=== PATIENT | male | born 1970 | race African-American/Black ===

== ENCOUNTER 2018-10-25 09:43 | Emergency (ER) | payer SELFPAY ==
[~2018-10-25] VITALS: Ht 185.4 cm; Wt 83.9 kg
[~2018-10-25 09:43] MED LIST: BACTRIM DS 8001 TA1 PO; DAYPRO600 M1 PO; KEFLEX500 MG PO; MEDROL DOSEPAK4 MG PO; NKHM; ROBAXIN750 MG PO; VICODIN 5/500 505 MG PO
[2018-10-25] MEDS ORDERED: NAPROSYN500 MG PO (10:29)
[2018-10-25] MEDS ORDERED: CEPHALEXIN500 M1 PO (10:29)
== END 2018-10-25 10:41 | disposition home or self-care (01) ==
LOC: ED 09:43
DX: S50.862A Insect bite (nonvenomous) of left forearm, initial encounter (principal); L03.114 Cellulitis of left upper limb; W57.XXXA Bitten or stung by nonvenomous insect and other nonvenomous arthropods, initial encounter; Y93.89 Activity, other specified; Y92.89 Other specified places as the place of occurrence of the external cause; Y99.8 Other external cause status

== ENCOUNTER 2019-12-28 08:06 | Emergency (ER) | payer OTHER, BC ==
[~2019-12-28] VITALS: Wt 87.5 kg
[~2019-12-28 08:06] MED LIST changes: +CEPHALEXIN500 M1 PO; +NAPROSYN500 MG PO
[2019-12-28] MEDS ORDERED: NAPROSYN500 MG PO (09:32)
[2019-12-28] MEDS ORDERED: METHOCARBAMOL500 M1 PO (09:32)
[2019-12-28] MEDS ORDERED: MEDROL DOSEPAK4 MG PO (09:32)
== END 2019-12-28 10:10 | disposition home or self-care (01) ==
LOC: ED 08:06
DX: M54.42 Lumbago with sciatica, left side (principal); Z79.899 Other long term (current) drug therapy

== ENCOUNTER 2019-12-31 09:38 | Emergency (ER) | payer OTHER, BC ==
[~2019-12-31] VITALS: Ht 185.4 cm; Wt 87.5 kg
[~2019-12-31 09:38] MED LIST changes: +METHOCARBAMOL500 M1 PO
[2019-12-31] MEDS ORDERED: NORCO 5-325 TA1 EACH PO (11:51)
== END 2019-12-31 12:00 | disposition home or self-care (01) ==
LOC: ED 09:38
DX: S39.012A Strain of muscle, fascia and tendon of lower back, initial encounter (principal); X50.1XXA Overexertion from prolonged static or awkward postures, initial encounter; Y93.89 Activity, other specified; Y92.89 Other specified places as the place of occurrence of the external cause; Y99.8 Other external cause status

== ENCOUNTER → 2020-01-10 | Outpatient (CLI) | payer OTHER ==
[~2020-01-10] MED LIST changes: +NORCO 5-325 TA1 EACH PO
== END | disposition home or self-care (01) ==
LOC: RAD 10:56
PROVIDERS: ATTEND Chiropractor Orthopedic
DX: S33.5XXA Sprain of ligaments of lumbar spine, initial encounter (principal); X58.XXXA Exposure to other specified factors, initial encounter; Y93.89 Activity, other specified; Y92.89 Other specified places as the place of occurrence of the external cause; Y99.8 Other external cause status

== ENCOUNTER → 2020-07-17 | Outpatient (CLI) | payer OTHER | END | disposition home or self-care (01) | LOC: RAD 11:22 | PROVIDERS: ATTEND Chiropractor Orthopedic | DX: M16.0 Bilateral primary osteoarthritis of hip (principal); M51.36 Other intervertebral disc degeneration, lumbar region; M25.751 Osteophyte, right hip; M25.752 Osteophyte, left hip; M25.852 Other specified joint disorders, left hip; M25.851 Other specified joint disorders, right hip; M48.061 Spinal stenosis, lumbar region without neurogenic claudication ==

== ENCOUNTER → 2021-04-08 | Outpatient (CLI) | payer OTHER | END | disposition home or self-care (01) | LOC: RAD 10:36 | PROVIDERS: ATTEND Anesthesiology Pain Medicine | DX: M99.04 Segmental and somatic dysfunction of sacral region (principal); M47.816 Spondylosis without myelopathy or radiculopathy, lumbar region; M51.27 Other intervertebral disc displacement, lumbosacral region ==

== ENCOUNTER 2021-10-27 15:39 | Emergency (ER) | payer OTHER ==
[~2021-10-27] VITALS: Ht 185.4 cm; Wt 86.2 kg
[2021-10-27] MEDS ORDERED: METHOCARBAMOL500 M1 PO (18:54)
[2021-10-27] MEDS ORDERED: PREDNISONE20 M1 PO (18:54)
== END 2021-10-27 19:07 | disposition home or self-care (01) ==
LOC: ED 15:39
DX: S39.012A Strain of muscle, fascia and tendon of lower back, initial encounter (principal); V49.88XA Car occupant (driver) (passenger) injured in other specified transport accidents, initial encounter; Y93.89 Activity, other specified; Y92.413 State road as the place of occurrence of the external cause; Y99.9 Unspecified external cause status

== ENCOUNTER → 2022-02-24 | Outpatient (CLI) | payer OTHER ==
[~2022-02-24] MED LIST changes: +PREDNISONE20 M1 PO
== END | disposition home or self-care (01) ==
LOC: MRI 00:56
PROVIDERS: ATTEND Chiropractor
DX: M51.36 Other intervertebral disc degeneration, lumbar region (principal); M51.27 Other intervertebral disc displacement, lumbosacral region; M48.07 Spinal stenosis, lumbosacral region; M48.061 Spinal stenosis, lumbar region without neurogenic claudication

== ENCOUNTER 2023-03-02 21:43 | Emergency (ER) | payer OTHER ==
[~2023-03-02] VITALS: Ht 185.4 cm; Wt 86.2 kg
[2023-03-03] MEDS ORDERED: METHOCARBAMOL500 M1 PO (00:33)
[2023-03-03] MEDS ORDERED: NAPROXEN250 MG PO (00:33)
== END 2023-03-03 00:55 | disposition home or self-care (01) ==
LOC: ED 21:43
DX: S39.012A Strain of muscle, fascia and tendon of lower back, initial encounter (principal); M54.42 Lumbago with sciatica, left side; M79.605 Pain in left leg; X58.XXXA Exposure to other specified factors, initial encounter; Y93.89 Activity, other specified; Y92.009 Unspecified place in unspecified non-institutional (private) residence as the place of occurrence of the external cause; Y99.8 Other external cause status